=== PATIENT | female | born 1980 | race Two or more races ===

== ENCOUNTER 2018-04-24 14:47 | Emergency (ER) | payer OTHER ==
[~2018-04-24] VITALS: Ht 157.5 cm; Wt 91.2 kg
[2018-04-24 15:28] LABS: Basophils # (auto) 0.1 uL; Basophils % (auto) 0.8 % (0.0-2.0); Eosinophils # (auto) 0.1 uL; Eosinophils % (auto) 0.7 % (0.0-7.0); Hematocrit 40.7 % (36.0-46.0); Hemoglobin 13.5 g/dL (12.2-16.2); Lymphocytes # (auto) 0.9 uL; Lymphocytes % (auto) 7.8 % (10.0-50.0); Mean Corpuscular Hemoglobin 29.4 pg (28.0-32.0); Mean Corpuscular Hgb Conc. 33.2 g/dL (32.0-36.0); Mean Corpuscular Volume 88.5 fL (80.0-100.0); Monocytes # (auto) 0.5 uL; Monocytes % (auto) 4.2 % (0.0-12.0); Neutrophils # (auto) 9.8 uL; Neutrophils % (auto) 86.5 % (37.0-80.0); Platelet Count (auto) 243 10^3/uL (140-450); Red Cell Distribution Width 14.4 % (11.8-14.3); White Blood Cell 11.3 10^3/uL (4.4-10.8)
[2018-04-24 16:04] LABS: Alanine Aminotransferase 24 U/L (13-56); Albumin 2.9 g/dL (3.4-5.0); Anion Gap 8 (5-15); Blood Alcohol < 3.0 mg/dL (0-5); Blood Urea Nitrogen 7 mg/dL (7-18); Calcium 8.2 mg/dL (8.5-10.1); Carbon Dioxide 24 mmol/L (21-32); Chloride 109 mmol/L (98-107); Glucose 143 mg/dL (74-106); Magnesium 1.9 mg/dL (1.6-2.6); Sodium 141 mmol/L (136-145)
[2018-04-24 16:07] LABS: Alkaline Phosphatase 140 U/L (45-117); Aspartate Aminotransferase 16 U/L (15-37); BUN/Creatinine Ratio 7.3; Bilirubin, Total 0.2 mg/dL (0.2-1.0); GFR African American 84 mL/min; GFR Non-African American 69 mL/min
[2018-04-24 16:09] LABS: Salicylate < 1.7 mg/dL (2.8-20.0)
[2018-04-24 16:11] LABS: Potassium 2.9 mmol/L (3.5-5.1)
[2018-04-24 16:15] LABS: Acetaminophen < 2.0 ug/mL (10-30)
[2018-04-24 17:58] LABS: Urine Pregnacy Test Negative (Negative)
[2018-04-24] MEDS ORDERED: POTASSIUM CHL 20 Meq TABLET PO ONE (18:15)
[2018-04-24 18:28] LABS: Alcohol, Urine < 3.0 mg/dL (0-5); Amphetamine Screen, Urine POSITIVE (NEGATIVE); Barbiturate Scree,Urine NEGATIVE (NEGATIVE); Benzodiazephine Screen, Urine NEGATIVE (NEGATIVE); Cannabinoid Screen, Urine NEGATIVE (NEGATIVE); Cocaine Screen, Urine NEGATIVE (NEGATIVE); Opiate Scree,Urine NEGATIVE (NEGATIVE); Phencyclidine Screen, Urine NEGATIVE (NEGATIVE)
[2018-04-24 18:29] LABS: Urine Bacteria NONE SEEN /hpf (None Seen); Urine Blood Negative /uL (Negative); Urine Hyaline Cast MOD /lpf (0 - 2); Urine Mucus FEW (None Seen); Urine Specific Gravity 1.031 (1.001-1.035); Urine WBC 5 /hpf (0 - 5)
[2018-04-25] MEDS ORDERED: SERTRALINE HCL 50 MG TAB PO ONE (12:15)
[2018-04-25] MEDS: PROMETHAZINE W/CODEINE 5 ML ORAL SYRUP PO PRN ×2 (12:45→21:49)
[2018-04-25] MEDS: ACETAMINOPHEN 325 MG TAB PO PRN ×2 (12:45→21:50)
[2018-04-25] MEDS: ALPRAZolam 0.5 MG TAB PO PRN ×2 (12:45→21:51)
[2018-04-25 14:12] LABS: Basophils # (auto) 0 uL; Basophils % (auto) 0.3 % (0.0-2.0); Eosinophils # (auto) 0.1 uL; Eosinophils % (auto) 1.4 % (0.0-7.0); Hematocrit 41.3 % (36.0-46.0); Hemoglobin 13.6 g/dL (12.2-16.2); Lymphocytes # (auto) 1.2 uL; Lymphocytes % (auto) 16.9 % (10.0-50.0); Mean Corpuscular Hemoglobin 29.5 pg (28.0-32.0); Mean Corpuscular Volume 89.3 fL (80.0-100.0); Monocytes # (auto) 0.2 uL; Monocytes % (auto) 2.9 % (0.0-12.0); Neutrophils # (auto) 5.7 uL; Neutrophils % (auto) 78.5 % (37.0-80.0); Nucleated Red Blood Cells % 0.1 %; Platelet Count (auto) 283 10^3/uL (140-450); Red Blood Cells 4.62 10^6/uL (4.0-5.20); Red Cell Distribution Width 14.6 % (11.8-14.3); White Blood Cell 7.2 10^3/uL (4.4-10.8)
[2018-04-25 14:30] LABS: Albumin 2.7 g/dL (3.4-5.0); Potassium 3.7 mmol/L (3.5-5.1)
[2018-04-25 14:32] LABS: BUN/Creatinine Ratio 7.5
[2018-04-25 14:35] LABS: Bilirubin, Total 0.2 mg/dL (0.2-1.0); Total Protein 6.9 g/dL (6.4-8.2)
[2018-04-26] MEDS: ACETAMINOPHEN 325 MG TAB PO PRN (00:29)
[2018-04-26] MEDS: ALPRAZolam 0.5 MG TAB PO PRN (00:29)
[2018-04-26 09:14] VITALS: BP 136/77
[2018-04-26] MEDS ORDERED: SERTRALINE HCL 50 MG TAB PO SCH (10:00)
== END 2018-04-26 09:45 | disposition short-term general hospital (02) ==
LOC: ER 14:47
DX: T45.0X2A Poisoning by antiallergic and antiemetic drugs, intentional self-harm, initial encounter (principal); F32.9 Major depressive disorder, single episode, unspecified; Y92.9 Unspecified place or not applicable
CPT/HCPCS: 36415; 80053; 80307; 80320; 80329; 81001; 81025; 83735; 85025

== ENCOUNTER 2018-09-03 21:52 | Emergency (ER) | payer OTHER ==
[~2018-09-03] VITALS: Ht 154.9 cm; Wt 93.9 kg
[2018-09-03 22:26] VITALS: BP 122/77
== END 2018-09-03 23:20 | disposition left against medical advice (07) ==
LOC: ER 21:54
DX: R22.43 Localized swelling, mass and lump, lower limb, bilateral (principal); Z53.21 Procedure and treatment not carried out due to patient leaving prior to being seen by health care provider